=== PATIENT | male | born 1950 | race Caucasian/White ===

== ENCOUNTER 2022-05-10 16:51 | Emergency (ER) | payer MEDICARE, SELFPAY ==
[2022-05-10 16:52] VITALS: BP 162/100; PULSE 117; RESP 18; TEMP 36.2; O2SAT 98; BMI 27.5
[2022-05-10 17:05] VITALS: BP 165/89; PULSE 107; O2SAT 97
--- NOTE | 2022-05-10 17:14 | EKG12_ITS ---
Test Reason : GENERAL Blood Pressure : / mmHG Vent. Rate : 105 BPM Atrial Rate : 105 BPM P-R Int : 140 ms QRS Dur : 080 ms QT Int : 342 ms P-R-T Axes : 068 005 052 degrees QTc Int : 452 ms Sinus tachycardia Otherwise normal ECG Confirmed by GALE CHANEY, CAROLINA ([id number]), science editor MC RAMOS ([id number]) on 05/12/2022 2:13:59 PM Referred By: Confirmed By:CAROLINA BEASLEY MD
--- NOTE | 2022-05-10 17:14 | EDS_ITS ---
HPI History of Present Illness Chief Complaint: Hypertension Informant: patient and spouse/S.O. Narrative Narrative: Patient presents about 3 hours after he got up from a nap and felt like his heart was beating hard, his legs were feeling weak and a little shaky, and he felt like maybe my blood pressure was up. He checked his blood pressure multiple times and was very high, 180-190s systolic. He states when he felt this way he walked to the bathroom and had several minutes worth of chest pressure that resolved, there were no other symptoms that occurred and resolved with that. He has recently been diagnosed with stage III rectal cancer, he had his first chemotherapy treatment 2 weeks ago, the second 1 started this morning as an outpatient and he is home with the infusion. He has had a little bit of nasal congestion he took some plain Mucinex without any decongestant this morning. He does not take any medication for blood pressure. Does not recall ever having had this happen before. No history of heart problems that he knows of. He states now his symptoms are resolved and he feels fine including the leg symptoms, pounding heartbeat, and chest discomfort. He has had no headache, focal neurologic symptoms, syncope. [facility] Medical History (Updated 05/10/22 @ 19:[address] Tommy Calloway MD) Rectal cancer Allergy/AdvReac Type Severity Reaction Status Date / Time No Known Allergies Allergy Verified 05/10/22 16:54 Social History Smoking Status: Never smoker ROS [facility] ED Constitutional Constitutional ED: Reports weakness; Denies chills or fever(s) Eyes Eyes: Denies change in vision or diplopia ENT ENT ED: Denies rhinorrhea or sore throat Cardiovascular Cardiovascular: Reports chest pain; Denies palpitations Respiratory/Chest Respiratory/Chest: Denies cough or dyspnea Gastrointestinal Gastrointestinal: Denies abdominal pain, diarrhea, nausea or vomiting Genitourinary Genitourinary ED: Denies dysuria or hematuria Musculoskeletal Musculoskeletal: Denies back pain or neck pain Integumentary Denies abscess or rash Neurologic Neurologic: Denies headache(s), paresthesias or weakness Psychiatric Psychiatric: Denies anxiety or suicidal thoughts EXAM Physical Exam Const Vital Signs: 05/10/22 16:52 05/10/22 17:04 05/10/22 17:05 Temperature 97.1 F L Temperature Source Temporal Pulse Rate 117 H 107 H Respiratory Rate 18 Respiratory Effort Normal Non-Labored Respiratory Pattern Normal Blood Pressure 162/100 H 165/89 H Blood Pressure Mean 120 114 Pulse Ox 98 97 Oxygen Delivery Method Room Air Room Air 05/10/22 17:24 05/10/22 18:00 05/10/22 18:52 Temperature Temperature Source Pulse Rate 105 H 103 H Respiratory Rate 14 11 L Respiratory Effort Respiratory Pattern Blood Pressure 127/75 H 138/85 H Blood Pressure Mean 92 102 Pulse Ox 97 97 94 Oxygen Delivery Method Room Air Room Air Room Air Positive well nourished and well developed General Appearance ED: well developed and NAD HEENT Reports moist mucous membranes normocephalic and atraumatic Eyes PERRL and EOMs intact bilaterally Neck full ROM and supple Resp normal respiratory effort and clear to auscultation bilaterally Cardio regular rate, regular rhythm and no murmurs GI non-tender and non-distended Auscultation: normoactive bowel sounds Palpation: soft Back/Spine no CVA tenderness General Back: other FROM Extremity normal to inspection General Extremety ED: Negative for edema, pulses abnormal or tenderness General Extremity: Negative for edema or pulses abnormal Neuro oriented x3, CN's II-XII intact bilaterally and no sensory deficits noted Sensorium / Orientation: awake and alert Motor Exam: strength 5/5 throughout Skin no rashes or lesions noted and no wounds MDM MDM MDM Narrative Medical decision making narrative: At the time of evaluation the patient is well-appearing has a normal exam and his blood pressure is 165/89. Work-up including EKG, chest x-ray, labs with troponin obtained and we monitored his blood pressure. No 1 view chest x-ray shows no acute pulmonary abnormalities, radiology in agreement. His EKG is no rmal, his troponin is normal, and his blood pressure gradually came down to 138/85 without treating it. He feels fine. We did a 2-hour repeat troponin. It came back at 11 with his initial being 8, this is negative, and he is stable for discharge home close outpatient follow-up. He remains asymptomatic. Lab Data Attestation: I reviewed the patient's lab results. Labs: Laboratory Results - last 24 hr 05/10/22 05/10/22 05/10/22 17:20 17:20 19:55 WBC 3.2 L RBC 4.48 L Hgb 13.0 Hct 39.6 L MCV 88.4 MCH 29.0 MCHC 32.8 RDW Std Deviation 52.8 H RDW Coeff of Miesha 16.2 H Plt Count 192 MPV 9.9 Immature Gran % (Auto) 0.300 Neut % (Auto) 92.6 H Lymph % (Auto) 4.3 L [place] % (Auto) 2.2 Eos % (Auto) 0.3 Baso % (Auto) 0.3 Absolute Neuts (auto) 3.0 Absolute Lymphs (auto) 0.14 L Nucleated RBC % 0 Differential Comment SCANNED Sodium 139 Potassium 4.2 Chloride 107 Carbon Dioxide 24.0 Anion Gap 8 BUN 16 Creatinine 1.30 Estim Creat Clear Calc 53.03 Est GFR (MDRD) Af Amer 70 Est GFR (MDRD) Non-Af 58 L BUN/Creatinine Ratio 12.3 Glucose 201 H Calcium 9.1 Troponin I High Sens 8 11 Radiography Diagnostic Testing: Clinical Impression(s) from Imaging Studies Chest X-Ray 05/10/22 18:18 IMPRESSION: 1. Port-A-Cath projects in normal position. No pneumothorax. 2. Elevation of hemidiaphragms greater on LEFT than RIGHT, minimal atelectasis and crowding of bronchovascular markings. 3. No focal infiltrate noted. No evidence of congestive failure. Electronically Signed: Chandu Hernandez MD at 18:54 EST Reading Location ID and State: [address] [place] [address] Tel , Service support , Rhythm Strip Rhythm Strip: Sinus Tach Rate: 105 Ectopy: None EKG Initial EKG: Attestation: I personally reviewed and interpreted this EKG as follows: Interpretation: No Acute Injury Pattern and Sinus Tachycardia (Otherwise normal EKG) Discharge Plan Triage Chief Complaint: Hypertension ED Provider: Tommy Calloway Dx/Rx/DC Orders Clinical Impression: Episode of hypertension, Chest pain Instructions: ED High Blood Pressure Hypertension Primary Care Provider: NEVIN CALDERON Referrals: Norberto Dunaway DO [Med Staff - Active Staff] - 3-5 Days if not improving NOT,DEFINED [Non-Staff] - Disposition Disposition: Home, Self Care
[2022-05-10 17:24] VITALS: O2SAT 97
[2022-05-10 17:57] LABS: Absolute Lymphocyte Count 0.14 X10^3/uL (0.83-4.51); Basophil# 0.01 X10^3/uL; Basophil% 0.3 % (0-1); Eosinophil# 0.01 X10^3/uL; Eosinophils% 0.3 % (0-5); Hematocrit 39.6 % (40-54); Lymphocyte # 0.14 X10^3/ul (0.83-4.51); Lymphocyte % 4.3 % (19-41); Mean Corp Hgb Conc 32.8 g/dL (32-36); Mean Corpuscular Volume 88.4 fL (80-94); Mean Platelet Vol. 9.9 fl (6.2-12.0); Monocyte# 0.07 X10^3/uL; Monocyte% 2.2 % (0-10); NRBC Flagged by Analyzer 0 % (0-5); Neutrophil # 2.98 X10^3/uL (2.7-7.7); Neutrophil % 92.6 % (47-70); POSITIVE COUNT YES; POSITIVE DIFFERENTIAL YES; Platelet Count 192 K/mm3 (150-450); RBC Distribution Width CV 16.2 % (11.6-14.6); RBC Distribution Width SD 52.8 fl (35.1-43.9); Red Blood Count 4.48 M/mm3 (4.6-6.2); White Blood Count 3.2 K/mm3 (4.4-11.0)
[2022-05-10 17:58] LABS: Differential Indicated SCAN CRITERIA MET
[2022-05-10 18:00] VITALS: BP 127/75; PULSE 105; RESP 14; O2SAT 97
[2022-05-10 18:05] LABS: Anion Gap 8 (5-15); BUN 16 mg/dL (7-18); BUN/Creat Ratio 12.3 RATIO (10-20); Calcium,Total 9.1 mg/dL (8.5-10.1); Chloride 107 mmol/L (98-107); EST Glomerular Filtration Rate 58 mL/min (>60); Est Glom Filt Rate - Afr Amer 70 mL/min (>60); Estimated Creatinine Clearance 53.03 ml/min; Glucose 201 mg/dL (74-106); Potassium 4.2 mmol/L (3.5-5.1); Sodium Level 139 mmol/L (136-145); Troponin-I HS (w/2H Reflex) 8 pg/mL (3.0-78.0)
--- NOTE | 2022-05-10 18:18 | RAD_ITS ---
INDICATION: chest pain EXAMINATION/TECHNIQUE: X-RAY - XR Chest 1 View COMPARISON: No previous relevant examinations available for comparison.. FINDINGS: LIFE-SUPPORT AND LINES: 1. Port-A-Cath projects in normal position. HEART AND VESSELS: The cardiac silhouette, pulmonary vasculature have normal appearance. No evidence of congestive failure. LUNGS AND PLEURAL SPACES: There is shallow inspiration, elevation hemidiaphragms with minimal basilar atelectasis and crowding of bronchovascular markings. No focal infiltrate No pulmonary mass is noted. MEDIASTINUM AND HILAR REGIONS: No masses adenopathy noted. No areas of calcification. Visualized upper airway is normal in position. BONY ELEMENTS: No acute bony changes noted. RAD/Chest 1 View (Portable) IMPRESSION: 1. Port-A-Cath projects in normal position. No pneumothorax. 2. Elevation of hemidiaphragms greater on LEFT than RIGHT, minimal atelectasis and crowding of bronchovascular markings. 3. No focal infiltrate noted. No evidence of congestive failure. Electronically Signed: Chandu Hernandez MD at 18:54 EST ,
[2022-05-10 18:19] LABS: Differential Comment SCANNED
[2022-05-10 18:52] VITALS: BP 138/85; PULSE 103; RESP 11; O2SAT 94
[2022-05-10 19:41] LABS: Reflex Troponin-HS? (from REC) Y
[2022-05-10 20:31] LABS: Troponin-I HS 11 pg/mL (3.0-78.0)
[2022-05-11 12:31] LABS: Pathologist Review Reviewed
== END 2022-05-10 21:02 | disposition home or self-care (01) ==
PROVIDERS: Emergency Provider Emergency Medicine; Visit Provider Emergency Medicine
DX: R07.9 Chest pain, unspecified (principal); C20 Malignant neoplasm of rectum; I10 Essential (primary) hypertension; Z79.899 Other long term (current) drug therapy
CPT/HCPCS: 71045; 80048; 84484; 85025; 93005; 99283; A4216